=== PATIENT | female | born 1955 | race Caucasian/White ===

== ENCOUNTER 2017-01-16 09:48 | Outpatient (CLI) | payer OTHER ==
--- NOTE | 2017-01-16 13:28 | MMO ---
BILATERAL DIGITAL SCREENING MAMMOGRAPHY: HISTORY: A 61-year-old female presents for digital screening mammography. COMPARISON: 05/06/2013, 05/03/2011, 03/01/2008 FINDINGS: This patient's mammogram is interpreted with the assistance of computer aided detection. The breasts are heterogeneously dense, which can obscure small masses. There appear to be stable, t ypically benign calcifications bilaterally, worse on the right side. No direct or indirect evidence of malignancy. IMPRESSION: BI-RADS Category 2: Benign findings. Continued routine annual screening. POS: VIVI
== END 2017-01-16 09:49 | disposition home or self-care (01) ==
LOC: MAMMO 09:48
PROVIDERS: ATTEND Family Medicine
DX: Z12.31 Encounter for screening mammogram for malignant neoplasm of breast (principal)
CPT/HCPCS: 77067; G0202

== ENCOUNTER 2018-01-30 09:04 | Outpatient (CLI) | payer OTHER | END 2018-01-30 09:05 | disposition home or self-care (01) | LOC: BICMAMMO 09:04 | PROVIDERS: ATTEND Family Medicine | DX: Z12.31 Encounter for screening mammogram for malignant neoplasm of breast (principal) | CPT/HCPCS: 77063; 77067 ==

== ENCOUNTER 2019-03-04 14:23 | Outpatient (CLI) | payer MEDICARE, OTHER ==
--- NOTE | 2019-03-04 16:08 | MMO ---
Bilateral MAMMO Bilat Screen [facility]. CLINICAL HISTORY: Patient is 63 years old and is seen for screening. The patient has no family history of breast cancer. The patient has no personal history of cancer. VIEWS: The views performed were: bilateral craniocaudal with tomosynthesis and bilateral mediolateral oblique with tomosynthesis. FILMS COMPARED: The present examination has been compared to prior imaging studies performed at [facility] on 05/03/2011, 05/06/2013, 01/16/2017 and 01/30/2018. This study has been interpreted with the assistance of computer-aided detection. MAMMOGRAM FINDINGS: The breasts are heterogeneously dense, which could obscure a lesion on mammography. There are benign appearing calcifications seen in both breasts. There are no suspicious masses, suspicious calcifications, or new areas of architectural distortion. IMPRESSION: THERE IS NO MAMMOGRAPHIC EVIDENCE OF MALIGNANCY. A ROUTINE FOLLOW-UP MAMMOGRAM IN 1 YEAR IS RECOMMENDED. THE RESULTS OF THIS EXAM WERE SENT TO THE PATIENT. ACR BI-RADS Category 2 - Benign finding MAMMOGRAPHY NOTE: 1. A negative mammogram report should not delay a biopsy if a dominant of clinically suspicious mass is present. 2. Approximately 10% to 15% of breast cancers are not detected by mammography. 3. Adenosis and dense breasts may obscure an underlying neoplasm. Reported by: SUSAN HERNANDEZ MD Electonically Signed: [id number]
== END 2019-03-04 14:24 | disposition home or self-care (01) ==
LOC: BICMAMMO 14:23
PROVIDERS: ATTEND Family Medicine
DX: Z12.31 Encounter for screening mammogram for malignant neoplasm of breast (principal)
CPT/HCPCS: 77063; 77067

== ENCOUNTER 2020-04-14 10:49 | Outpatient (CLI) | payer MEDICARE, OTHER ==
--- NOTE | 2020-04-14 11:26 | MMO ---
Bilateral MAMMO Bilat Screen [facility]. CLINICAL HISTORY: Patient is 64 years old and is seen for screening. The patient has no family history of breast cancer. The patient has no personal history of cancer. VIEWS: The views performed were: bilateral craniocaudal with tomosynthesis and bilateral mediolateral oblique with tomosynthesis. FILMS COMPARED: The present examination has been compared to prior imaging studies performed at [facility] on 05/06/2013, 01/16/2017, 01/30/2018 and 03/04/2019. This study has been interpreted with the assistance of computer-aided detection. MAMMOGRAM FINDINGS: The breasts are heterogeneously dense, which could obscure a lesion on mammography. There are stable benign appearing calcifications seen in both breasts. There are no suspicious masses, suspicious calcifications, or new areas of architectural distortion. IMPRESSION: THERE IS NO MAMMOGRAPHIC EVIDENCE OF MALIGNANCY. A ROUTINE FOLLOW-UP MAMMOGRAM IN 1 YEAR IS RECOMMENDED. THE RESULTS OF THIS EXAM WERE SENT TO THE PATIENT. ACR BI-RADS Category 2 - Benign finding MAMMOGRAPHY NOTE: 1. A negative mammogram report should not delay a biopsy if a dominant of clinically suspicious mass is present. 2. Approximately 10% to 15% of breast cancers are not detected by mammography. 3. Adenosis and dense breasts may obscure an underlying neoplasm. Reported by: JOAO PIKE MD Electonically Signed: [id number]
== END 2020-04-14 10:50 | disposition home or self-care (01) ==
LOC: BICMAMMO 10:49
PROVIDERS: ATTEND Family Medicine
DX: Z12.31 Encounter for screening mammogram for malignant neoplasm of breast (principal)
CPT/HCPCS: 77063; 77067

== ENCOUNTER 2021-05-26 14:15 | Outpatient (CLI) | payer MEDICARE, OTHER | END 2021-05-26 14:16 | disposition home or self-care (01) | LOC: BICMAMMO 14:15 | PROVIDERS: ATTEND Family Medicine | DX: Z12.31 Encounter for screening mammogram for malignant neoplasm of breast (principal) | CPT/HCPCS: 77063; 77067 ==